=== PATIENT | female | born 1970 | race Caucasian/White ===

== ENCOUNTER 2022-02-17 09:11 | Emergency (ER) | payer MEDICAID ==
[~2022-02-17] VITALS: Ht 170.2 cm; Wt 74.8 kg
[2022-02-17 09:20] VITALS: BP_SYST 125
[2022-02-17] MEDS ORDERED: IPRATROPIUM BROM 0.5 MG/2.5 ML VIAL.NEB (ATROVENT) INH ONE ×2 (09:25→09:30)
[2022-02-17] MEDS ORDERED: ALBUTEROL SULFATE 0.083% 2.5 MG/3 ML VIAL.NEB INH ONE ×2 (09:25→09:30)
--- NOTE | 2022-02-17 09:28 | NUR ---
PATIENT BIBA FROM HOME C/O SOB AND WHEEZES, PLACE IN ROOM 2 SEEN BY EDP WITH ORDER Greta out.
[2022-02-17] MEDS ORDERED: METHYLPREDNISOLONE SOD SUCC 40 MG/ML VIAL IVP ONE (09:30)
--- NOTE | 2022-02-17 09:30 | NUR ---
ER at bedside examining patient.
--- NOTE | 2022-02-17 11:00 | NUR ---
PATIENT MEDICATED, TOLERATED WELL, EYE CLOSE AT THIS TIME RESTING COMFORTABLY, WILL CONTINUE TO MONITOR.
[2022-02-17] MEDS ORDERED: ALBMDI INH (11:04)
--- NOTE | 2022-02-17 11:18 | NUR ---
ALL RESULT BACK, EDP REASSESS PATIENT AND D/C HOME WITH INSTRUCTION. H/L REMOVED SKIN INTACT.
--- NOTE | 2022-02-17 11:20 | NUR ---
Patient given written and verbal discharge instructions and verbalizes understanding. ER MD discussed with patient the results and treatment provided. Patient in stable condition. ID arm band removed. IV catheter removed intact and dressing applied, no active bleeding. Rx of ALBUTEROL given. Patient educated on pain management and to follow up with PMD. Pain Scale 0. Opportunity for questions provided and answered. Medication side effect fact sheet provided.
--- NOTE | 2022-02-17 11:43 | NUR ---
[facility] CALLED FOR PATIENT.
== END 2022-02-17 11:25 | disposition home or self-care (01) ==
LOC: SED 09:11
DX: J45.909 Unspecified asthma, uncomplicated (principal); R06.02 Shortness of breath; R05.9 Cough, unspecified; Z88.6 Allergy status to analgesic agent; Z79.899 Other long term (current) drug therapy; Z20.822 Contact with and (suspected) exposure to COVID-19
CPT/HCPCS: 36415; 71045; 94640; 99284; 96374; 87804 ×2; 87426; J1030; J7613

== ENCOUNTER 2022-07-04 02:22 | Emergency (ER) | payer OTHER, MEDICAID ==
[~2022-07-04] VITALS: Ht 170.2 cm; Wt 77.1 kg
[~2022-07-04 02:22] MED LIST: ALBMDI INH
[2022-07-04 02:38] VITALS: BP_SYST 124
--- NOTE | 2022-07-04 02:44 | NUR ---
PPatient to ER bed 07 to gown for evaluation. Side rails up. Report given to FRED ALVAREZ.
[2022-07-04] MEDS ORDERED: HYDROcodone/ACETAMIN 5-325 MG TAB (NORCO/ VICODIN) PO ONE (02:45)
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
[2022-07-04] MEDS ORDERED: TRAM50TA2 PO (03:22)
[2022-07-04] MEDS ORDERED: LIDO1ADH71 TD (03:22)
[2022-07-04] MEDS ORDERED: AUG875 PO (03:53)
[2022-07-04] MEDS ORDERED: FLOEARD RIGHT EAR (03:53)
== END 2022-07-04 04:38 | disposition home or self-care (01) ==
LOC: SED 02:22
DX: S39.012A Strain of muscle, fascia and tendon of lower back, initial encounter (principal); H66.011 Acute suppurative otitis media with spontaneous rupture of ear drum, right ear; M54.2 Cervicalgia; Z88.6 Allergy status to analgesic agent; Z79.899 Other long term (current) drug therapy; V89.2XXA Person injured in unspecified motor-vehicle accident, traffic, initial encounter; Y93.89 Activity, other specified; Y92.89 Other specified places as the place of occurrence of the external cause; Y99.8 Other external cause status
CPT/HCPCS: 72040-TC; 72072-TC; 72100-TC; 99284